=== PATIENT | male | born 1955 | race Asian ===

== ENCOUNTER 2018-11-24 21:02 | Emergency (ER) | payer SELFPAY ==
[~2018-11-24] VITALS: Ht 170.2 cm; Wt 90.7 kg
[~2018-11-24 21:02] MED LIST: [UNRECOGNIZED DRUG - OTHER]
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
--- NOTE | 2018-11-24 21:18 | Emergency Room Report ---
History of Present Illness General Chief Complaint: Alcohol Intoxication Source: Patient Present Illness HPI This is a 63-year-old Malay speaking male presents with chief complaint of alcohol intoxication. He was intoxicated and [employer] and was asked to leave by security. He started yelling and cursing and laid on the floor and refuse to get up. They called 911. Patient initially denies any pain. He then told her Malay speaking nurse that he has body pain. He was also asking why he is here. He was to go home. She denies any trauma. No fever chills but no nausea no vomiting. Allergies: Coded Allergies: UNABLE TO ASSESS (Unverified , 11/24/18) Patient History Past Medical History: see triage record, old chart reviewed Past Surgical History: other Pertinent Family History: none Social History: Reports: alcohol use; Denies: smoking Immunizations: other Reviewed Nursing Documentation: PMH: Agreed; PSxH: Agreed Nursing Documentation-PMH Past Medical History: Deferred Review of Systems Eye: Denies: eye pain, blurred vision ENT: Denies: ear pain, nose congestion, throat swelling Respiratory: Denies: cough, shortness of breath Cardiovascular: Denies: chest pain, palpitations Gastrointestinal: Denies: abdominal pain, diarrhea, nausea, vomiting Musculoskeletal: Denies: back pain, joint pain Skin: Denies: rash Neurological: Denies: headache, numbness Endocrine: Denies: increased thirst, increased urine Hematologic/Lymphatic: Denies: easy bruising All Other Systems: negative except mentioned in HPI Physical Exam Vital Signs Date Time Temp Pulse Resp B/P (MAP) Pulse Ox O2 Delivery O2 Flow Rate FiO2 11/24/18 20:56 98.4 94 22 100 vitals normal Sp02 EP Interpretation: reviewed, normal General Appearance: well appearing, no apparent distress, alert, other - Intoxicated, combative Head: normocephalic, atraumatic Eyes: bilateral eye PERRL, bilateral eye EOMI ENT: hearing grossly normal, normal pharynx Neck: full range of motion, supple, no meningismus Respiratory: chest non-tender, lungs clear, normal breath sounds Cardiovascular #1: regular rate, rhythm, no murmur Gastrointestinal: normal bowel sounds, non tender, no mass, no organomegaly, no bruit, non-distended, other - Laparotomy scar Musculoskeletal: back normal, gait/station normal, normal range of motion Psychiatric: mood/affect normal Skin: warm/dry Medical Decision Making Diagnostic Impression: Primary Impression: Acute alcoholic intoxication Qualified Codes: F10.920 - Alcohol use, unspecified with intoxication, uncomplicated ER Course Patient presents with alcohol intoxication. No trauma to warrant CT scan or x- rays. Patient slept for 2 hours and now walking to the bathroom without any problem. No slurred speech. Wants to go home. No criteria for 5150. Last Vital Signs Date Time Temp Pulse Resp B/P (MAP) Pulse Ox O2 Delivery O2 Flow Rate FiO2 11/24/18 20:56 98.4 94 22 100 Status: improved Disposition: HOME, SELF-CARE Condition: Stable Patient Instructions: Alcohol Intoxication, [id number] Additional Instructions: Abstain from alcohol. Follow-up with your doctor in 7 days. Return if worse. Alex Donis MD November 24, 2018 21:18
[2018-11-24 21:20] VITALS: BP 120/82
--- NOTE | 2018-11-24 22:30 | NUR ---
ED Nurse Note: pt woke up from sleep and went to use the restroom
[2018-11-24 23:39] VITALS: BP 129/86
--- NOTE | 2018-11-25 00:20 | NUR ---
ED Nurse Note: pt is currently asleep in bed and was provided with a blanket
[2018-11-25 01:10] VITALS: BP 124/86
--- NOTE | 2018-11-25 01:57 | NUR ---
ED Nurse Note: pt is restnig in bed. pt refuses drinks and food at this time.
[2018-11-25 03:14] VITALS: BP 122/81
--- NOTE | 2018-11-25 03:30 | NUR ---
ED Nurse Note: pt resting in bed at this time. per pt he has family members that can pick him up at 0600
[2018-11-25 05:12] VITALS: BP 127/84
--- NOTE | 2018-11-25 05:23 | NUR ---
ED Nurse Note: pt offered food and water at this time. pt refuses to accept.
--- NOTE | 2018-11-25 05:46 | NUR ---
ED Nurse Note: gave pt water
[2018-11-25 05:59] VITALS: BP 124/86
--- NOTE | 2018-11-25 05:59 | NUR ---
ER DISCHARGE NOTE: Patient is cleared to be discharged per ERMD, pt is aox4, on room air, with stable vital signs. pt was given dc and prescription instructions, pt was able to verbalize understanding, pt id band removed. pt is able to ambulate with steady gait. pt took all belongings. pt called taxi and paid for his fare.
== END 2018-11-25 06:00 | disposition home or self-care (01) ==
LOC: EDBD 21:02 → EMR 21:13
DX: F10.129 Alcohol abuse with intoxication, unspecified (principal)
CPT/HCPCS: 99283